=== PATIENT | female | born 1935 | race Caucasian/White ===

== ENCOUNTER → 2018-12-26 | Outpatient (REF) | payer MEDICARE ==
[2018-12-26 13:15] LABS: BASO # 0.1 10^3/uL (0.0-0.2); BASO % 0.6 % (0.0-1.0); EOS # 0.4 10^3/uL (0.0-0.50); EOS % 4.8 % (0.0-3.0); HEMATOCRIT 39.6 % (36.0-47.0); HEMOGLOBIN 12.5 g/dl (12.0-15.5); LYMPH % 35.6 % (24.0-44.0); MEAN CORPUSCULAR HEMOGLOBIN 30.3 pg (27.0-33.0); MEAN CORPUSCULAR HGB CONC 31.6 g/dl (32.0-36.5); MEAN CORPUSCULAR VOLUME 95.9 fl (80.0-96.0); MONO # 0.9 10^3/uL (0.0-0.8); MONO % 10.5 % (0.0-5.0); NEUTROPHILS % 48.1 % (36.0-66.0); PLATELET COUNT, AUTOMATED 228 10^3/uL (150-450); RED BLOOD COUNT 4.13 10^6/uL (4.00-5.40); WHITE BLOOD COUNT 8.3 10^3/uL (4.0-10.0)
[2018-12-26 13:49] LABS: HEMOGLOBIN A1c 5.5 %
[2018-12-26 13:53] LABS: ALBUMIN 3.7 GM/DL (3.2-5.2); ALT/SGPT 20 U/L (12-78); BILIRUBIN,TOTAL 0.5 MG/DL (0.2-1.0); BLOOD UREA NITROGEN 14 MG/DL (7-18); CARBON DIOXIDE LEVEL 28 MEQ/L (21-32); CHLORIDE LEVEL 107 MEQ/L (98-107); CHOLESTEROL LEVEL 200 MG/DL (<200); CHOLESTEROL RISK RATIO 5.128 (<5); CREATININE FOR GFR 0.63 MG/DL (0.55-1.30); GLOMERULAR FILTRATION RATE > 60.0 (>32); GLUCOSE, FASTING 86 MG/DL (70-100); HDL CHOLESTEROL 39 MG/DL (>40); LDL CHOLESTEROL 134 MG/DL (<100); NON-HDL-C 161 MG/DL; POTASSIUM SERUM 4.8 MEQ/L (3.5-5.1); SODIUM LEVEL 139 MEQ/L (136-145); TOTAL PROTEIN 7.4 GM/DL (6.4-8.2); TRIGLYCERIDES LEVEL 133 MG/DL (<150)
[2018-12-26 13:54] LABS: FOLATE 7.3 NG/ML; TOTAL 25(OH) VITAMIN D 36.7 NG/ML (30.0-100.0); VITAMIN B12 LEVEL 354 PG/ML
== END ==
LOC: M SFHCADAM 10:51
PROVIDERS: ATTEND Physician Assistant Medical
DX: I10 Essential (primary) hypertension (principal); E66.01 Morbid (severe) obesity due to excess calories; E55.9 Vitamin D deficiency, unspecified; E53.8 Deficiency of other specified B group vitamins

== ENCOUNTER → 2019-04-10 | Outpatient (REF) | payer MEDICARE, MEDICAID ==
[~2019-04-10] MED LIST: ALDA25TA2 PO; B-12100021 PO; FURO40TA2 PO; GNP250TA9 PO; HYDR12.55 PO; LOSA50TA88 PO; ONDA-83 PO; OXYC-517 PO; OXYCO5TA PO; POTA10CA32 PO; VITA500075 PO
[2019-04-10 12:22] LABS: BASO # 0.1 10^3/uL (0.0-0.2); BASO % 0.6 % (0.0-1.0); EOS # 0.1 10^3/uL (0.0-0.50); EOS % 1.7 % (0.0-3.0); HEMATOCRIT 38.8 % (36.0-47.0); HEMOGLOBIN 12.5 g/dl (12.0-15.5); LYMPH # 2.1 10^3/uL (1.5-4.5); LYMPH % 25.6 % (24.0-44.0); MEAN CORPUSCULAR HEMOGLOBIN 29.6 pg (27.0-33.0); MEAN CORPUSCULAR HGB CONC 32.2 g/dl (32.0-36.5); MEAN CORPUSCULAR VOLUME 91.7 fl (80.0-96.0); MONO % 11.7 % (0.0-5.0); PLATELET COUNT, AUTOMATED 346 10^3/uL (150-450); RED BLOOD COUNT 4.23 10^6/uL (4.00-5.40); WHITE BLOOD COUNT 8.2 10^3/uL (4.0-10.0)
[2019-04-10 12:54] LABS: ALBUMIN 2.8 GM/DL (3.2-5.2); ALT/SGPT 11 U/L (12-78); BILIRUBIN,TOTAL 0.5 MG/DL (0.2-1.0); BLOOD UREA NITROGEN 10 MG/DL (7-18); CALCIUM LEVEL 8.7 MG/DL (8.8-10.2); CARBON DIOXIDE LEVEL 28 MEQ/L (21-32); CHLORIDE LEVEL 101 MEQ/L (98-107); CREATININE FOR GFR 0.84 MG/DL (0.55-1.30); GLOMERULAR FILTRATION RATE > 60.0 (>32); GLUCOSE, FASTING 96 MG/DL (70-100); LIPASE 160 U/L (73-393); MAGNESIUM LEVEL 2.7 MG/DL (1.8-2.4); NT-PRO BNP 152 PG/ML (<450); POTASSIUM SERUM 4.2 MEQ/L (3.5-5.1); SODIUM LEVEL 136 MEQ/L (136-145); TOTAL PROTEIN 6.9 GM/DL (6.4-8.2)
== END ==
LOC: M SFHCPLAZ 10:54
PROVIDERS: ATTEND Nurse Practitioner Family
DX: R60.9 Edema, unspecified (principal); R10.11 Right upper quadrant pain

== ENCOUNTER → 2019-04-13 | Outpatient (CLI) | payer MEDICARE, MEDICAID ==
[~2019-04-13] MED LIST changes: -ALDA25TA2 PO; -B-12100021 PO; -FURO40TA2 PO; -GNP250TA9 PO; -ONDA-83 PO; -OXYC-517 PO; -OXYCO5TA PO; -POTA10CA32 PO; -VITA500075 PO
--- NOTE | 2019-04-13 08:55 | REP ---
Acute abdominal series four views including PA chest, upright abdomen and two abdomen supine views: PA chest: Comparison is 06/17/2007. There is a large left pleural effusion. The right lung is clear. Cardiac size is upper normal. The mora, mediastinum, skeletal structures are unremarkable except for bilateral shoulder arthroplasties. There is no free subdiaphragmatic air. Impression: Large left pleural effusion. No free subdiaphragmatic air. Bilateral shoulder arthroplasties. Abdomen, supine upright views: There are no comparisons. The bowel gas pattern is normal. There are no calcifications. There is lumbar scoliosis convex left and lumbar spine and degenerative disc disease. The skeletal structures and soft tissues otherwise are unremarkable. Impression: Normal bowel gas pattern. Electronically Signed by Doc Funk MD 04/13/2019 08:47 A
--- NOTE | 2019-04-13 09:58 | REP ---
RIGHT UPPER QUADRANT ULTRASOUND: Real-time sonographic evaluation of the right upper quadrant was performed. The gallbladder has been previously surgically removed. Common bile duct is dilated up to 15 mm. This is slightly above normal for a patient of this age status-post cholecystectomy. Liver demonstrates slightly lobulated margins. There appears to be a granuloma a the right dome. A 7 mm cystic area is seen laterally in the right lobe. Medially along the right lobe of the liver and adjacent mesentery is a cystic area of 1 cm. No gross pancreatic mass is seen. Right kidney demonstrates no hydronephrosis with normal size 11.1 cm in length. There is moderate diffuse ascites present. IMPRESSION:Status-post cholecystectomy. Mild dilatation of the common bile duct at 15 mm. Lobulated margins of the right lobe of the liver with possible cirrhosis. 7 mm cyst lateral right lobe with exophytic or mesenteric cyst medial right lobe 1 cm in diameter. Moderate ascites. Electronically Signed by Doc Amato MD 04/17/2019 05:21 P
== END ==
LOC: M RAD 07:41
PROVIDERS: ATTEND Nurse Practitioner Family
DX: K76.89 Other specified diseases of liver (principal); R18.8 Other ascites; J90 Pleural effusion, not elsewhere classified; R10.11 Right upper quadrant pain; Z90.49 Acquired absence of other specified parts of digestive tract

== ENCOUNTER 2019-04-14 05:09 | Inpatient (IN) | payer MEDICARE, MEDICAID ==
[~2019-04-14] VITALS: Ht 157.5 cm; Wt 93.9 kg
[2019-04-14] VITALS (7 sets, daily range): BP systolic 120–156; BP diastolic 58–65
[2019-04-14] MEDS ORDERED: MORPHINE 2 MG/ML 1ML SYRINGE (J2270) IV ONE (05:45)
[2019-04-14] MEDS ORDERED: ONDANSETRON 4MG/2ML VIAL (J2405) As Ordered ONE (06:13)
[2019-04-14] MEDS ORDERED: ONDANSETRON 4MG/2ML VIAL (J2405) IV ONE (06:15)
[2019-04-14 06:42] LABS: HEMOGLOBIN 12.3 g/dl (12.0-15.5); MEAN CORPUSCULAR HEMOGLOBIN 30.2 pg (27.0-33.0); MEAN CORPUSCULAR HGB CONC 32.4 g/dl (32.0-36.5); MEAN CORPUSCULAR VOLUME 93.4 fl (80.0-96.0); PLATELET COUNT, AUTOMATED 286 10^3/uL (150-450); RED BLOOD COUNT 4.07 10^6/uL (4.00-5.40); WHITE BLOOD COUNT 7.5 10^3/uL (4.0-10.0)
[2019-04-14 06:53] LABS: INR 1.16; PROTHROMBIN TIME 14.5 SECONDS (11.8-14.0)
[2019-04-14] MEDS ORDERED: ISOVUE-370 76% 100ML VIAL (Q9967) As Ordered ONE (06:53)
[2019-04-14 06:54] LABS: PARTIAL THROMBOPLASTIN TIME 31.1 SECONDS (25.0-38.4)
--- NOTE | 2019-04-14 06:56 | REPVR ---
EXAM: CT Head Without Contrast EXAM DATE/TIME: 04/14/2019 5:40 AM CLINICAL HISTORY: 84 years old, female; Injury or trauma; Fall; Initial encounter; Concussion / head injury TECHNIQUE: Imaging protocol: Computed tomography images of the head without contrast. Radiation optimization: All CT scans at this facility use at least one of these dose optimization techniques: automated exposure control; mA and/or kV adjustment per patient size (includes targeted exams where dose is matched to clinical indication); or iterative reconstruction. COMPARISON: No relevant prior studies available. FINDINGS: Brain: No CT evidence of acute cortical infarct. Hypodensity within the white matter most suggestive of chronic small vessel ischemic/gliotic change. No mass effect. No edema. There is no evidence of parenchymal hemorrhage. No extra-axial collections. No subarachnoid blood. Ventricles: The ventricular system is midline and appropriate in size for the degree of sulcal dilatation. No hydrocephalus. Bones/joints: Unremarkable. No acute fracture. Sinuses: The demonstrated paranasal sinuses are free of air-fluid level or suspicious mass. Mastoid air cells: Mastoids are free of acute inflammatory change. Orbits: The globes are symmetric. No retrobulbar hematoma. No post septal swelling. Soft tissues: Soft tissue swelling/superficial hematoma centered over the left face/left infraorbital region. Vasculature: There are atherosclerotic changes within the anterior and posterior circulations. IMPRESSION: 1. No evidence of an acute intracranial injury. No intracranial hemorrhage. No evidence of acute cortical infarct. No mass effect. No edema. Followup as clinically warranted. 2. Soft tissue swelling/superficial hematoma centered over the left face/left infraorbital region. No acute fracture. The globes are symmetric. No retrobulbar hematoma. No post septal swelling. 3. Nonemergent/chronic findings as described in the body of report. Electronically signed by: David Cowart On 04/14/2019 06:56:47 AM
--- NOTE | 2019-04-14 07:08 | REPVR ---
EXAM: CT Cervical Spine Without Contrast EXAM DATE/TIME: 04/14/2019 5:40 AM CLINICAL HISTORY: 84 years old, female; Injury or trauma; Fall; Initial encounter; Concussion /head injury TECHNIQUE: Imaging protocol: Computed tomography images of the cervical spine without contrast. Coronal and sagittal reformatted images were created and reviewed. Radiation optimization: All CT scans at this facility use at least one of these dose optimization techniques: automated exposure control; mA and/or kV adjustment per patient size (includes targeted exams where dose is matched to clinical indication); or iterative reconstruction. COMPARISON: No relevant prior studies available. FINDINGS: Vertebrae: The patient's head is tilted toward the left more superiorly. Alignment is essentially anatomic. The vertebral body heights are maintained. No compression fracture. The facet joints are aligned. Facet degenerative changes. The posterior elements are intact. The occipital condyles show no evidence of fracture and demonstrate a normal relationship with the C1 lateral masses. No evidence of dens fracture. There is no evidence of acute cervical spine fracture. Foramen transversarium are intact. Discs/Spinal canal/Neural foramina: No blood within the central canal. Chronic multilevel degenerative/non-emergent changes with multilevel bilateral neural foraminal narrowings. No acute post-traumatic central canal stenosis. If the patient has any signs/symptoms related to the cord or if otherwise clinically warranted, correlation with MRI could be considered. Prevertebral Space: No prevertebral soft tissue swelling. Soft tissues: Unremarkable. Thyroid: 3 cm in transverse diameter heterogeneous right thyroid lobe nodule with peripheral calcifications. Correlation with thyroid ultrasound recommended. Lungs: No acute findings in the demonstrated portions of the lung apices. Vasculature: Atherosclerotic vascular changes. IMPRESSION: 1. No evidence of acute cervical spine fracture. No prevertebral soft tissue swelling. No blood within the central canal. Chronic multilevel degenerative/non-emergent changes. No acute post-traumatic central canal stenosis. If the patient has any signs/symptoms related to the cord or if otherwise clinically warranted, correlation with MRI could be considered. 2. 3 cm in transverse diameter heterogeneous right thyroid lobe nodule with peripheral calcifications. Correlation with thyroid ultrasound recommended. COMMENT: In patients aged 35 years and older with an incidental thyroid nodule equal to or greater than 1.[address], MRI or extrathyroidal US, further evaluation with dedicated thyroid US is recommended for patients with normal life expectancy and without comorbidities. For smaller nodules without suspicious features, no further evaluation or follow up is recommended. Electronically signed by: David Cowart On 04/14/2019 07:08:11 AM
[2019-04-14 07:12] LABS: ALBUMIN 2.6 GM/DL (3.2-5.2); ALT/SGPT 9 U/L (12-78); BILIRUBIN,DIRECT 0.4 MG/DL (0.0-0.2); BILIRUBIN,TOTAL 0.7 MG/DL (0.2-1.0); BLOOD UREA NITROGEN 9 MG/DL (7-18); CALCIUM LEVEL 8.3 MG/DL (8.8-10.2); CARBON DIOXIDE LEVEL 25 MEQ/L (21-32); CHLORIDE LEVEL 106 MEQ/L (98-107); CREATININE FOR GFR 0.76 MG/DL (0.55-1.30); GLOMERULAR FILTRATION RATE > 60.0 (>32); GLUCOSE, FASTING 101 MG/DL (70-100); LIPASE 94 U/L (73-393); POTASSIUM SERUM 3.9 MEQ/L (3.5-5.1); SODIUM LEVEL 139 MEQ/L (136-145); TOTAL PROTEIN 6.7 GM/DL (6.4-8.2)
--- NOTE | 2019-04-14 07:14 | REPVR ---
EXAM: CT Maxillofacial Without Contrast EXAM DATE/TIME: 04/14/2019 5:40 AM CLINICAL HISTORY: 84 years old, female; Eye pain and face pain; Left; Additional info: Fall TECHNIQUE: Imaging protocol: Computed tomography images of the face without contrast. Coronal and sagittal reformatted images were created and reviewed. Radiation optimization: All CT scans at this facility use at least one of these dose optimization techniques: automated exposure control; mA and/or kV adjustment per patient size (includes targeted exams where dose is matched to clinical indication); or iterative reconstruction. COMPARISON: No relevant prior studies available. FINDINGS: Orbits: The globes are symmetric. No retrobulbar hematoma. No post septal swelling. Mastoid air cells: Mastoids are free of acute inflammatory change. Sinuses: The demonstrated paranasal sinuses are free of air-fluid level or suspicious mass. Bones/joints: No mandibular fracture. No maxillary fracture. The zygomatic arches are intact. No acute displaced nasal fracture. Please correlate clinically. No acute orbital fracture. Soft tissues: Soft tissue swelling/superficial hematoma centered over the left cheek/left infraorbital region. Vasculature: Atherosclerotic vascular changes. IMPRESSION: Soft tissue swelling/superficial hematoma centered over the left cheek/left infraorbital region. No facial fracture. The paranasal sinuses are clear. Globes are symmetric. No retrobulbar hematoma. No radiopaque foreign body. Electronically signed by: David Cowart On 04/14/2019 07:14:26 AM
--- NOTE | 2019-04-14 07:30 | REPVR ---
EXAM: CT Chest Without Contrast EXAM DATE/TIME: 04/14/2019 5:40 AM CLINICAL HISTORY: 84 years old, female; Injury or trauma; Fall; Initial encounter; Concussion /head injury TECHNIQUE: Imaging protocol: Axial computed tomography images of the chest without intravenous contrast. Coronal and sagittal reformatted images were created and reviewed. 3D rendering: MIP reconstructed images were created and reviewed. Radiation optimization: All CT scans at this facility use at least one of these dose optimization techniques: automated exposure control; mA and/or kV adjustment per patient size (includes targeted exams where dose is matched to clinical indication); or iterative reconstruction. COMPARISON: CR Abdomen,Flat Upright,PA CHEST 04/13/2019 8:33 AM FINDINGS: Thyroid: 3 cm heterogeneous nodule right thyroid lobe with peripheral calcifications. Thyroid ultrasound could further evaluate. Lungs: Compressive atelectatic changes/consolidation in the left lung base. Pleural space: No pneumothorax. Moderate left-sided pleural effusion. Heart: Coronary artery calcifications. No cardiomegaly. No pericardial effusion. Aorta: The vasculature demonstrates diffuse moderate atherosclerotic calcification. Lymph nodes: No enlarged lymph nodes. Bones/joints: Bilateral reverse total shoulder arthroplasties. Soft tissues: Unremarkable. Intraperitoneal space/upper abdomen: Ascites in the upper abdomen bilaterally. On limited images the liver has a nodular appearance suggesting cirrhosis. Please correlate with known history. IMPRESSION: Ascites in the upper abdomen bilaterally. On limited images the liver has a nodular appearance suggesting cirrhosis. Please correlate with known history. Moderate left-sided pleural effusion.Compressive atelectatic changes/consolidation in the left lung base. The vasculature demonstrates diffuse moderate atherosclerotic calcification. Coronary artery calcifications. 3 cm heterogeneous nodule right thyroid lobe with peripheral calcifications. Thyroid ultrasound could further evaluate. Bilateral reverse total shoulder arthroplasties. COMMENT: In patients aged 35 years and older with an incidental thyroid nodule equal to or greater than 1.[address], MRI or extrathyroidal US, further evaluation with dedicated thyroid US is recommended for patients with normal life expectancy and without comorbidities. For smaller nodules without suspicious features, no further evaluation or follow up is recommended. Electronically signed by: David Cowart On 04/14/2019 07:30:45 AM
[2019-04-14] MEDS: MORPHINE 2 MG/ML 1ML SYRINGE (J2270) IV PRN ×2 (08:25→10:11)
--- NOTE | 2019-04-14 08:34 | REP ---
CT of the chest with IV contrast: Comparison is a CT of the chest without IV contrast performed earlier this same date. The ascending thoracic aorta, aortic arch and descending thoracic aorta are unremarkable. There is no evidence of aortic dissection. There is no mediastinal hematoma. There is a large left pleural effusion with compression atelectasis of the left lower lobe. This is unchanged. The right lung is clear. There are bilateral shoulder arthroplasties. No clavicle or scapular fracture is identified. No rib fracture is identified. No sternal fracture. No vertebral body fracture. Cardiac size is normal. There is no pericardial effusion. In the upper abdomen there is ascites surrounding the liver and spleen. The hepatic margin is nodular suggestive of cirrhosis. This is unchanged. There are thyroid gland nodules as discussed on the prior report. Thyroid ultrasound follow-up might be considered. Impression: Large left pleural effusion with compression atelectasis of the left lower lobe. No thoracic aortic aneurysm or dissection. No mediastinal hematoma. No fractures are identified. Thyroid nodules. Upper abdominal ascites. Hepatic nodular surface compatible with cirrhosis. Coronary artery calcified atheroma. Electronically Signed by Doc Funk MD 04/14/2019 08:25 A
--- NOTE | 2019-04-14 08:50 | REP ---
CT of the abdomen pelvis with IV contrast, without bowel contrast: The study is performed contiguous with the chest CT. There are no comparison studies. There is a large volume of ascites throughout the abdomen surrounding the liver and spleen extending inferiorly in the colic gutters and into the pelvis. The hepatic surface has a nodular appearance compatible with cirrhosis. There are no hepatic masses. The the patient has a cholecystectomy. The common biliary duct measures 11 mm in diameter. This is upper normal in a postcholecystectomy patient. The pancreas is unremarkable. There is an 18 ml hypodensity in the spleen, possibly a splenic hematoma. The adrenals are unremarkable. The renal cortices appear thinned diffusely. There is a left renal upper pole 3.1 cm Bosniak type 1 simple cyst. No renal masses are identified. The abdominal aorta is unremarkable except for calcified atheroma. There is no abdominal aortic dissection or periaortic hematoma or aneurysm. There is no bowel distension or obstruction. Pelvis: The the patient has an appendectomy. The uterus has a heterogeneous myometrium. The uterus is retroverted. There is a right adnexal 3.4 cm cysts. The bladder is unremarkable. No lumbar, pelvic or hip fractures are identified. There is degenerative disc disease throughout the lumbar spine. Impression: Large volume of ascites. Nodular hepatic surface compatible with cirrhosis. No hepatic masses are identified. Hypodensity in the spleen, possibly a splenic hematoma. Left renal cyst. Cholecystectomy and appendectomy. Heterogeneous myometrium. The uterus is retroverted. Right adnexal cyst. No abdominal aortic aneurysm or dissection. No fractures are identified. Electronically Signed by Doc Funk MD 04/14/2019 08:42 A
--- NOTE | 2019-04-14 08:52 | REP ---
Left knee four views: There is no fracture or dislocation. There is no hemarthrosis. 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 Impression: No fracture or hemarthrosis. Chondrocalcinosis and tricompartment osteoarthritis. Electronically Signed by Doc Funk MD 04/14/2019 08:44 A
[2019-04-14] MEDS ORDERED: LOSA50TA88 PO ×2 (09:52)
[2019-04-14] MEDS ORDERED: HYDR12.55 PO (09:52)
[2019-04-14 10:19] LABS: CK-MB VALUE MASS < 1.0 NG/ML (<3.6); CPK CREATINE PHOSPHOKINASE 33 U/L (26-192); FREE THYROXINE INDEX 3.4 % (1.3-4.8); LDH LACTATE DEHYDROGENASE 277 U/L (84-246); MB/CK RELATIVE INDEX 3.03 (< OR =4); T UPTAKE 34 % (30-39); TROPONIN I 0.02 NG/ML (< 0.10)
[2019-04-14] MEDS ORDERED: PILL CUTTER 1 EACH XX PRN (10:30)
[2019-04-14] MEDS ORDERED: FUROSEMIDE 100 MG/10 ML VIAL (J1940) IV ONE (11:00)
[2019-04-14] MEDS ORDERED: SPIRONOLACTONE 50 MG TAB PO ONE (11:00)
[2019-04-14] MEDS ORDERED: metOLazone 2.5 MG TAB PO ONE (11:00)
--- NOTE | 2019-04-14 13:37 | REP ---
Thyroid ultrasound: The thyroid right lobe is normal size measuring 3.9 x 2.9 x 2.5 cm. The thyroid left lobe is normal size measuring 3.2 x 1.2 x 1.0 cm. The isthmus is mildly thickened measuring up to 3.8 mm. Right lobe: There are at least four nodules: Upper pole, solid, 0.6 cm. Mid pole, complex, 2.3 cm. Mid pole, solid, 1.6 cm. The lower pole, calcified, 1.0 cm. Consideration might be given to ultrasound guided needle biopsy of the larger nodules. Left lobe: There is a single upper pole cyst measuring 0.2 cm. Other than the thyroid nodules/cysts. The thyroid parenchyma is homogeneous. Electronically Signed by Doc Funk MD 04/14/2019 01:29 P
--- NOTE | 2019-04-14 13:51 | HPE ---
DATE OF ADMISSION: 04/14/2019 CHIEF COMPLAINT: Fall. HISTORY OF PRESENTING ILLNESS: This is an 84-year-old female who lives alone in a senior apartment with a [employer] bracelet and family close by, prior history of hypertension, which resolved without medications when she lost about 30 pounds, chronic back pain, osteoarthritis, prior history of bilateral shoulder surgery, obesity, body mass index (BMI) of 38.5, probable obstructive sleep apnea. Presents to the emergency room with a fall at home. The patient lost her footing at around 4:00 to 4:30 a.m. She got up around 3:30 to 4:00 a.m. to go to the bathroom, which had a tile file, she usually wears a brace on her left foot with a leather bottom and laces, which she kept intact. As she turned to sit down, she fell forward into the doorway landing on her left side, sustaining some bruises on the left face and eye as she fell on the sill. Both knees hurt the floor. She then pushed her [employer] necklace and help came. She has had increasing abdominal fullness, lower extremity edema for the past 1 month; despite losing 30 pounds when she first moved here, she has now gained them all back. She complains of early satiety, only able to eat about half of her soup and then feeling sick to her stomach. She complains of generalized fatigue and weakness and has been sleeping much more recently. She has noted increasing abdominal distention, weight gain. She denies any shortness of breath, chest pain, pressure, tightness, lightheadedness or dizziness. Denies any palpitations, fever, chills prior to the fall. Denies any nausea, vomiting, diarrhea, or constipation. She denies ever drinking much alcohol, drug use, or any family history of liver disease. In the ER, she was found to have a large left pleural effusion, a large amount of ascites on CT abdomen and pelvis. There is no fracture noted on the cervical spine, but a notable thyroid nodule with thyroid function test pending. 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 PAST MEDICAL HISTORY: Hypertension. Osteoarthritis. Chronic back pain. Morbid obesity, BMI of 38.5. PAST SURGICAL HISTORY: Bilateral shoulder arthroplasty. Cholecystectomy. Appendectomy. SOCIAL HISTORY: The patient lives in senior housing in [facility]. She lives alone with Life Alert necklace. Her apartment has pull strings and lives on the ground floor. She has a Pomeranian at home. Family is close by. Healthcare proxy is Nida; phone number is [phone]. She is DO NOT RESUSCITATE/DO NOT INTUBATE. Patient denies any history of any alcohol use. No recreational drug use. She lived with her , until he , [place] a farm and raised eight children. After the children grew up, she worked at [employer] for about 7 years. FAMILY HISTORY: Noncontributory due to age. ALLERGIES: SULFA, ACETAMINOPHEN, ASPIRIN and IBUPROFEN. REVIEW OF SYSTEMS: Twelve-point system negative aside from positive findings on history of the present illness. PHYSICAL EXAMINATION: Temperature 98.3, pulse 80, respiratory rate 18, blood pressure is 132/59, 92% to 93% on room air. Body max index is 38.5. Generally, the patient has a significant ecchymotic area in the left periorbital area, left forehead, and cheek. She is awake, alert, oriented times three, providing much of the history. There is no respiratory distress or use of accessory respiratory muscles. There is no conversational dyspnea. Pupils are equally round, reactive to light and accommodation. Extraocular muscles are intact. The patient has no horizontal or vertical nystagmus. Anicteric sclerae. No jaundice. Face is symmetric. Tongue is midline. Neck is supple. Full range of motion. No cervical lymphadenopathy, thyromegaly. Moist mucous membranes. Mucosa is pink. No thyromegaly noted. No carotid bruits. Lungs are diminished on the left, right is clear. No wheezing. Heart: S1, S2, sinus rhythm. No murmurs, rubs or gallops. Nondisplaced point of maximum impulse. Abdomen: Obese, soft, nontender, nondistended. Positive bowel sounds times four quadrants. Positive fluid wave. No caput medusae, spider angiomas or palmar erythema. Extremities: 3+ pitting edema to the sacrum. Significant left knee ecchymosis. Range of motion is limited secondary to severe pain after her fall. EKG is pending. LABORATORY DATA: White count 7.5, hemoglobin 12, hematocrit 38, platelet 286. Sodium 139, potassium 3.9, chloride 106, bicarbonate 25, BUN 9, creatinine 0.76, glucose of 101, calcium of 8.3, total bilirubin 0.7, direct bilirubin 0.4, AST 21, ALT 9, alkaline phosphatase 47, LDH 277, total CK 33, MB less than 1, troponin 0.02, total protein 6.7, albumin 2.6, lipase 94, procalcitonin pending. TSH 2.8, free T4 of 3.4, T3 uptake of 34. IMAGING STUDIES: 04/14/2019, 5:[address] - soft tissue swelling and superficial hematoma over the left cheek and left infraorbital region. No facial fracture. Paranasal sinuses are clear. Globes are symmetric. Knee x-ray shows no fracture or hemarthrosis of the left knee. Chondrocalcinosis and tricompartment osteoarthritis. CT of the head shows no evidence of acute intracranial injury. No intracranial hemorrhage. No evidence of acute cortical infarct. No mass effect, edema. Soft tissue swelling and superficial hematoma centered over the left face, left infraorbital region. No acute fracture. Globes ae symmetric. No retrobulbar hematoma. No postseptal swelling. Nonemergent chronic findings as described in the body of the report. Chest CT: Thyroid 3 cm heterogenous nodule right thyroid lobe with peripheral calcifications. Thyroid ultrasound could further evaluate. Lungs have compressive atelectasis and consolidation in the left lung base. No pneumothorax. Moderate left-sided pleural effusion. Heart: No cardiomegaly or pericardial effusion. Moderate atherosclerotic disease of the aorta. Bilateral total shoulder arthroplasties. Ascites in the upper abdomen bilaterally. Liver has a nodular appearance suggesting liver cirrhosis. Cervical spine CT: No evidence of acute cervical spine fracture. No prevertebral soft tissue swelling. No blood within the central canal. Chronic multilevel degenerative nonemergent changes. No acute posttraumatic central canal stenosis. 3 cm transverse diameter heterogenous right thyroid lobe nodule with peripheral calcifications. Correlations with thyroid ultrasound recommended. CT angio of the chest: Rule out aortic injury. No thoracic aortic aneurysm or dissection. No mediastinal hematoma. Left-sided pleural effusion with compressive atelectasis of the left lower lobe. CT of the abdomen and pelvis shows large volume of ascites. Nodular hepatic surface compatible with cirrhosis. No hepatic masses are identified. Hypodensity in the spleen, possibly a splenic hematoma. Left renal cyst. Cholecystectomy and appendectomy. Heterogenous myometrium. Uterus is retroverted. Right adnexal cyst. No abdominal aortic aneurysm or dissection. No fractures are identified. ASSESSMENT AND PLAN: An 84-year-old female status post fall at home, history of hypertension, morbid obesity, now found to have nodular liver cirrhosis with portal hypertension, ascites, and decompensated liver disease and large left pleural effusion. Current active issues: 1. Liver cirrhosis, decompensated with a large amount of ascites. The patient currently has no nausea, vomiting, worsening shortness of breath, fever, chills, or any abdominal pain. Paracentesis has been set up for radiology to be done on Tuesday. Will send for peritoneal fluid, monitor for fevers. No empiric antibiotics with rifaximin at this time. If the patient gets confused, will check an ammonia level. Recheck complete metabolic panel in the morning. Patient will be tried on Lasix, spironolactone, fluid restriction of two liters daily, propranolol if blood pressure permits. If patient's blood pressure decreases, may need to use midodrine along with spironolactone to prevent depletion of potassium until patient has improved. 2. Left-sided pleural effusion secondary to cor pulmonale due to nodular liver cirrhosis and decompensated liver failure. At this time, the patient will be given a trial of diuresis, fluid restriction, strict intake and output, daily weights, monitor patient's creatinine. If needed, due to low blood pressure, patient may be given midodrine along with albumin infusions to increase renal perfusion to improve diuresis. If the patient has recurrent ascites and pleural effusions, may benefit from referral to interventional radiology for a transjugular intrahepatic portosystemic shunt (TIPS) procedure. 3. Probable nonalcoholic steatohepatitis. Obtain lipid panel. Continue with treatment for decompensated liver disease with diuresis, treatment for portal hypertension with propranolol and strict intake and output and fluid restriction. 4. Thyroid nodule. Will obtain a thyroid ultrasound. Thyroid function tests are negative. 5. Recent fall. Appears to be mechanical. Will obtain physical therapy (PT), occupational therapy (OT). Warm compresses to the left knee ecchymosis and elevation of the affected extremity. The patient does not have any limitations of extraocular movements of the left eye, despite significant ecchymosis, she has had no visual changes. Will continue to monitor for now. 6. Deep vein thrombosis (DVT) prophylaxis with compression stockings. In light of multiple ecchymotic areas, will not place on any heparin or Lovenox. 7. Morbid obesity, complicating care. Body mass index of 38.5. 8. Probable obstructive sleep apnea. Obstructive sleep apnea (SUZY) protocol. 9. History of hypertension. Currently controlled. Will hold off on any oral medications for now as we are proceeding with diuresis. Diet will be Dietary Approaches to Stop Hypertension (DASH) diet. Patient has been signed out to Dr. Fermín Millard at [facility].
--- NOTE | 2019-04-14 16:32 | REP ---
Bilateral lower extremity deep vein duplex ultrasound: The deep veins demonstrate normal compression, normal Doppler color flow and normal Doppler waveforms with respiration and augmentation from the popliteal veins to the common femoral veins bilaterally. Impression: There is no deep vein thrombus in the right or left lower extremities. Electronically Signed by Doc Funk MD 04/14/2019 04:24 P
[2019-04-14] MEDS: FUROSEMIDE 20 MG/2 ML VIAL (J1940) IV SCH (18:13)
[2019-04-14] MEDS: SPIRONOLACTONE 25 MG TAB PO SCH (18:13)
[2019-04-14 19:33] LABS: BLOOD UREA NITROGEN 10 MG/DL (7-18); CALCIUM LEVEL 8.5 MG/DL (8.8-10.2); CARBON DIOXIDE LEVEL 28 MEQ/L (21-32); CHLORIDE LEVEL 103 MEQ/L (98-107); CREATININE FOR GFR 0.89 MG/DL (0.55-1.30); GLOMERULAR FILTRATION RATE > 60.0 (>32); GLUCOSE, FASTING 119 MG/DL (70-100); MAGNESIUM LEVEL 2.2 MG/DL (1.8-2.4); POTASSIUM SERUM 3.7 MEQ/L (3.5-5.1); SODIUM LEVEL 137 MEQ/L (136-145)
[2019-04-14] MEDS ORDERED: ONDANSETRON 4MG/2ML VIAL (J2405) IV PRN (22:15)
[2019-04-14] MEDS ORDERED: methylPREDNISolone INJ 40 MG/1 ML VIAL (J2920) IV ONE (22:15)
[2019-04-14] MEDS: MORPHINE 4 MG/ML 1ML VIAL/SYRINGE (J2270) IV PRN (22:25)
[2019-04-15] VITALS (10 sets, daily range): BP systolic 119–170; BP diastolic 53–70
[2019-04-15] MEDS: FUROSEMIDE 20 MG/2 ML VIAL (J1940) IV SCH ×4 (00:31→18:52)
[2019-04-15 03:51] LABS: HEMATOCRIT 36.9 % (36.0-47.0); HEMOGLOBIN 11.8 g/dl (12.0-15.5); MEAN CORPUSCULAR HEMOGLOBIN 29.9 pg (27.0-33.0); MEAN CORPUSCULAR VOLUME 93.4 fl (80.0-96.0); PLATELET COUNT, AUTOMATED 280 10^3/uL (150-450); RED BLOOD COUNT 3.95 10^6/uL (4.00-5.40); WHITE BLOOD COUNT 6.6 10^3/uL (4.0-10.0)
[2019-04-15 04:15] LABS: ALBUMIN 2.5 GM/DL (3.2-5.2); ALT/SGPT 9 U/L (12-78); BILIRUBIN,TOTAL 0.5 MG/DL (0.2-1.0); BLOOD UREA NITROGEN 10 MG/DL (7-18); CALCIUM LEVEL 8.3 MG/DL (8.8-10.2); CARBON DIOXIDE LEVEL 28 MEQ/L (21-32); CHLORIDE LEVEL 101 MEQ/L (98-107); CHOLESTEROL LEVEL 170 MG/DL (<200); CHOLESTEROL RISK RATIO 6.296 (<5); CREATININE FOR GFR 0.88 MG/DL (0.55-1.30); GLOMERULAR FILTRATION RATE > 60.0 (>32); GLUCOSE, FASTING 126 MG/DL (70-100); HDL CHOLESTEROL 27 MG/DL (>40); LDL CHOLESTEROL 120 MG/DL (<100); NON-HDL-C 143 MG/DL; POTASSIUM SERUM 3.9 MEQ/L (3.5-5.1); SODIUM LEVEL 136 MEQ/L (136-145); TOTAL PROTEIN 7.1 GM/DL (6.4-8.2); TRIGLYCERIDES LEVEL 113 MG/DL (<150)
[2019-04-15] MEDS: MORPHINE 4 MG/ML 1ML VIAL/SYRINGE (J2270) IV PRN ×2 (07:29→22:30)
[2019-04-15] MEDS: SPIRONOLACTONE 25 MG TAB PO SCH ×2 (08:19→17:00)
[2019-04-15] MEDS ORDERED: SLF 3 ML SYR IV PRN (12:30)
[2019-04-15] MEDS: SLF 3 ML SYR IV SCH ×2 (15:00→22:29)
--- NOTE | 2019-04-15 17:23 | IPNPDOC ---
Subjective Date Seen The patient was seen on 04/15/19. Subjective Chief Complaint/HPI improved GUZMAN since admission Constitutional: Denies: Chills, Fever Eyes: Denies: Pain, Vision change ENT: Denies: Head Aches Skin: Denies: Rash Pulmonary: Denies: Dyspnea, Cough Cardiovascular: Denies: Chest Pain, Palpitations Gastrointestinal: Denies: Nausea, Vomiting Genitourinary: Denies: Dysuria Objective Physical Examination General Exam: Positive: Alert Eye Exam: Positive: PERRLA Neck Exam: Positive: JVD Chest Exam: Positive: Rales, Rhonchi; Negative: Clear to auscultation Abdomen Exam: Positive: Normal bowel sounds Extremity Exam: Positive: Edema Psych Exam: Positive: Mood NL Assessment /Plan Problems (1) Ascites Problem Text: -3L since admission planned diagnostic para/thoracentesis 04/16 (could not be done over weekend) tumor markers for ascites corral 04/15 TTE/BNP (to ro concomitant CHF) 04/14 + fur 20 IV q6H and charlette 25 BID (favor 2 hyperaldo) 04/14 CT AP: Large volume of ascites. Nodular hepatic surface compatible with cirrhosis. No hepatic masses are identified. Hypodensity in the spleen, possibly a splenic hematoma. Left renal cyst. Cholecystectomy and appendectomy. Heterogeneous myometrium. The uterus is retroverted. Right adnexal cyst. No abdominal aortic aneurysm or dissection. No fractures are identified. 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 No thoracic aortic aneurysm or dissection. No mediastinal hematoma. No fractures are identified. Thyroid nodules. Upper abdominal ascites. Hepatic nodular surface compatible with cirrhosis. Coronary artery calcified atheroma. (4) Weight loss Status: Chronic Problem Text: as per pleural effusion (5) Thyroid nodule Problem Text: 04/14 thyroid US: Right lobe: There are at least four nodules: Upper pole, solid, 0.6 cm. Mid pole, complex, 2.3 cm. Mid pole, solid, 1.6 cm. The lower pole, calcified, 1.0 cm. favor FNA 16, 23 mm lesions (6) Physical deconditioning Problem Text: + PT p teses Plan/VTE VTE Prophylaxis Ordered?: No VTE Exclusion Pharmacological: Other VS, I&O, 24H, Fishbone Vital Signs/I&O Vital Signs Date Time Temp Pulse Resp B/P (MAP) Pulse Ox O2 Delivery O2 Flow Rate FiO2 04/15/19 16:00 98.0 78 18 119/53 (75) 94 2.0 04/14/19 10:00 Room Air I&O- Last 24 Hours up to 6 AM 04/15/19 06:00 Intake Total 790 ml Output Total 4175 ml Balance -3385 ml Laboratory Data 24H LABS Laboratory Tests 2 04/14/19 18:57: Anion Gap 6L, Glomerular Filtration Rate > 60.0, Blood Urea Nitrogen 10, Creatinine 0.89, Sodium Level 137, Potassium Level 3.7, Chloride Level 103, Carbon Dioxide Level 28, Calcium Level 8.5L, Magnesium Level 2.2 04/15/19 03:34: Anion Gap 7L, Glomerular Filtration Rate > 60.0, Blood Urea Nitrogen 10, Creatinine 0.88, Sodium Level 136, Potassium Level 3.9, Chloride Level 101, Carbon Dioxide Level 28, Calcium Level 8.3L, Nucleated Red Blood Cells % (auto) 0.0, Aspartate Amino Transf (AST/SGOT) 19, Alanine Aminotransferase (ALT/SGPT) 9L, Alkaline Phosphatase 45, Total Bilirubin 0.5, Triglycerides Level 113, LDL Cholesterol 120H, Total Protein 7.1, Albumin 2.5L, Albumin/Globulin Ratio 0.54L, Total Cholesterol 170, Non-HDL Cholesterol (LDL + VLDL) 143, Total HDL Cholesterol 27L, Cholesterol/HDL Ratio 6.296H CBC/BMP Laboratory Tests 04/14/19 18:57 Calcium Level 8.5 L 04/15/19 03:34 Calcium Level 8.3 L, Red Blood Count 3.95 L, Mean Corpuscular Volume 93.4, Mean Corpuscular Hemoglobin 29.9, Mean Corpuscular Hemoglobin Concent 32.0, Red Cell Distribution Width 14.6 H, Aspartate Amino Transf (AST/SGOT) 19, Alanine Aminotransferase (ALT/SGPT) 9 L, Alkaline Phosphatase 45, Total Bilirubin 0.5, Triglycerides Level 113, LDL Cholesterol 120 H, Total Protein 7.1, Albumin 2.5 L Fermín Millard M.D. Apr 15, 2019 17:23
[2019-04-15 19:01] LABS: NT-PRO BNP 348 PG/ML (<450)
[2019-04-16] VITALS (8 sets, daily range): BP systolic 126–164; BP diastolic 57–70
[2019-04-16] MEDS: FUROSEMIDE 20 MG/2 ML VIAL (J1940) IV SCH ×5 (00:22→23:55)
[2019-04-16 01:19] LABS: TROPONIN I < 0.02 NG/ML (< 0.10)
[2019-04-16] MEDS: MORPHINE 4 MG/ML 1ML VIAL/SYRINGE (J2270) IV PRN ×5 (04:53→21:42)
[2019-04-16 06:03] LABS: BASO % 0.2 % (0.0-1.0); EOS # 0.1 10^3/uL (0.0-0.50); EOS % 0.9 % (0.0-3.0); HEMATOCRIT 36.5 % (36.0-47.0); LYMPH # 1.8 10^3/uL (1.5-4.5); LYMPH % 20.1 % (24.0-44.0); MEAN CORPUSCULAR HEMOGLOBIN 29.9 pg (27.0-33.0); MEAN CORPUSCULAR HGB CONC 32.9 g/dl (32.0-36.5); MONO # 1.1 10^3/uL (0.0-0.8); MONO % 13.1 % (0.0-5.0); NEUTROPHILS # 5.7 10^3/uL (1.8-7.7); NEUTROPHILS % 65.4 % (36.0-66.0); PLATELET COUNT, AUTOMATED 256 10^3/uL (150-450); RED BLOOD COUNT 4.01 10^6/uL (4.00-5.40); WHITE BLOOD COUNT 8.7 10^3/uL (4.0-10.0)
[2019-04-16] MEDS: SLF 3 ML SYR IV SCH ×3 (06:27→20:33)
[2019-04-16 06:33] LABS: ALBUMIN 2.6 GM/DL (3.2-5.2); BILIRUBIN,TOTAL 0.5 MG/DL (0.2-1.0); CALCIUM LEVEL 8.9 MG/DL (8.8-10.2); CREATININE FOR GFR 0.96 MG/DL (0.55-1.30); GLOMERULAR FILTRATION RATE 59.1 (>32); MAGNESIUM LEVEL 2.2 MG/DL (1.8-2.4); POTASSIUM SERUM 3.5 MEQ/L (3.5-5.1)
--- NOTE | 2019-04-16 07:52 | ECHO ---
TWO-DIMENSIONAL ECHOCARDIOGRAM REPORT REFERRING PHYSICIAN: Dr. Bauer DATE: 04/15/2019 INDICATION: Dyspnea. HEIGHT: 157 cm. WEIGHT: 95 kg. DIMENSIONS: IVS 1.2 LV 4.2 LVPW 1.1 LA 2.9 Aorta 3.0 IVC 1.2 Mitral E wave velocity 74 A wave 92 E prime septal 5.1 E prime lateral 8.3 FINDINGS: This study is of rather limited technical quality corresponding to patient's body habitus. The patient is in sinus rhythm. Left ventricle is normal size. There is borderline left ventricular hypertrophy. I assume overall normal LV systolic function even though the visualization was poor and I certainly could miss even substantial wall motion abnormality. The right ventricle appears to be normal size and mildly hypertrophic based on limited views. Both atria appear grossly normal. There are some minimal sclerotic abnormalities of aortic valve. Same applies for mitral valve. Neither valve was particularly well seen. Limited views of tricuspid valve also appear normal. Pulmonic valve was not visualized. There is no pericardial effusion. Inferior vena cava is of normal size. Aortic root is normal. Aortic arch and abdominal aorta were poorly visualized. Doppler interrogation of aortic valve reveals no stenosis or insufficiency. Same applies for mitral valve. There is trace tricuspid insufficiency. Based on fair quality TR jet pulmonary artery pressure is estimated around 30 mmHg which would correspond to borderline pulmonary hypertension. Mitral inflow pattern and tissue Doppler imaging of mitral annulus reveal grade 1 diastolic dysfunction. CONCLUSIONS: 1. Study is of rather limited technical quality with only limited views. 2. Normal LV size with borderline LVH and grossly preserved LV systolic function. Grade 1 diastolic dysfunction. 3. No hemodynamically significant valvular disease. 4. Likely normal central venous pressure and borderline pulmonary hypertension. COMMENT: SBE prophylaxis is not recommended cyanotic.
--- NOTE | 2019-04-16 09:29 | IPNPDOC ---
Subjective Date Seen The patient was seen on 04/16/19. Subjective Chief Complaint/HPI Patient lying comfortably in bed as I entered the room. Her daughter was at her bedside Constitutional: Denies: Chills, Fever Pulmonary: Reports: Other Symptoms (Mild SOB ); Denies: Dyspnea, Cough, Pleuritic Chest Pain Cardiovascular: Denies: Chest Pain, Palpitations, Edema Gastrointestinal: Denies: Nausea, Vomiting, Abdominal Pain Psych: Reports: Mood Normal Objective Physical Examination General Exam: Positive: Alert, No Acute Distress Eye Exam: Positive: PERRLA Neck Exam: Positive: JVD Chest Exam: Negative: Clear to auscultation, Rales, Rhonchi Abdomen Exam: Positive: Normal bowel sounds, Soft; Negative: Tenderness Extremity Exam: Positive: Edema Psych Exam: Positive: Mood NL Assessment /Plan Problems (1) Ascites Status: Acute Response to Treatment: Stable Problem Text: 04/16/19: planned diagnostic para/thoracentesis today -3L since admission planned diagnostic para/thoracentesis 04/16 (could not be done over weekend) tumor markers for ascites corral 04/15 TTE/BNP (to ro concomitant CHF) 04/14 + fur 20 IV q6H and charlette 25 BID (favor 2 hyperaldo) 04/14 CT AP: Large volume of ascites. Nodular hepatic surface compatible with cirrhosis. No hepatic masses are identified. Hypodensity in the spleen, possibly a splenic hematoma. Left renal cyst. Cholecystectomy and appendectomy. Heterogeneous myometrium. The uterus is retroverted. Right adnexal cyst. No abdominal aortic aneurysm or dissection. No fractures are identified. (2) Pleural effusion Status: Acute Problem Text: 04/16/19: planned diagnostic thoracentesis as per pleural effusion 04/14 CT chest: Large left pleural effusion with compression atelectasis of the left lower lobe. No thoracic aortic aneurysm or dissection. No mediastinal hematoma. No fractures are identified. Thyroid nodules. Upper abdominal ascites. Hepatic nodular surface compatible with cirrhosis. Coronary artery calcified atheroma. 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 Mid pole, complex, 2.3 cm. Mid pole, solid, 1.6 cm. The lower pole, calcified, 1.0 cm. favor FNA 16, 23 mm lesions (6) Physical deconditioning Problem Text: + PT p teses Plan/VTE VTE Prophylaxis Ordered?: No VTE Exclusion Pharmacological: Other VS, I&O, 24H, Fishbone Vital Signs/I&O Vital Signs Date Time Temp Pulse Resp B/P (MAP) Pulse Ox O2 Delivery O2 Flow Rate FiO2 04/16/19 08:00 97.5 74 18 128/60 (82) 95 1.0 04/16/19 01:00 Room Air I&O- Last 24 Hours up to 6 AM 04/16/19 06:00 Intake Total 750 ml Output Total 3700 ml Balance -2950 ml Laboratory Data 24H LABS Laboratory Tests 2 04/15/19 17:56: Ammonia 24, CG-Uui-V-Type Natriuretic Peptide 348 04/16/19 00:35: Troponin I < 0.02, Thyroid Stimulating Hormone (TSH) 2.670 04/16/19 05:38: Immature Granulocyte % (Auto) 0.3, White Blood Count 8.7, Red Blood Count 4.01, Hemoglobin 12.0, Hematocrit 36.5, Mean Corpuscular Volume 91.0, Mean Corpuscular Hemoglobin 29.9, Mean Corpuscular Hemoglobin Concent 32.9, Red Cell Distribution Width 14.4, Platelet Count 256, Neutrophils (%) (Auto) 65.4, Lymphocytes (%) (Auto) 20.1L, Monocytes (%) (Auto) 13.1H, Eosinophils (%) (Auto) 0.9, Basophils (%) (Auto) 0.2, Neutrophils # (Auto) 5.7, Lymphocytes # (Auto) 1.8, Monocytes # (Auto) 1.1H, Eosinophils # (Auto) 0.1, Basophils # (Auto) 0.0, Nucleated Red Blood Cells % (auto) 0.0, Anion Gap 4L, Glomerular Filtration Rate 59.1, Blood Urea Nitrogen 18#, Creatinine 0.96, Sodium Level 136, Potassium Level 3.5, Chloride Level 98, Carbon Dioxide Level 34H, Calcium Level 8.9, Aspartate Amino Transf (AST/SGOT) 20, Alanine Aminotransferase (ALT/SGPT) 11L, Alkaline Phosphatase 43L, Total Bilirubin 0.5, Total Protein 7.0, Albumin 2.6L, Magnesium Level 2.2, Albumin/Globulin Ratio 0.59L CBC/BMP Laboratory Tests 04/16/19 05:38 Red Blood Count 4.01, Mean Corpuscular Volume 91.0, Mean Corpuscular Hemoglobin 29.9, Mean Corpuscular Hemoglobin Concent 32.9, Red Cell Distribution Width 14.4, Neutrophils (%) (Auto) 65.4, Lymphocytes (%) (Auto) 20.1 L, Monocytes (%) (Auto) 13.1 H, Eosinophils (%) (Auto) 0.9, Basophils (%) (Auto) 0.2, Neutrophils # (Auto) 5.7, Lymphocytes # (Auto) 1.8, Monocytes # (Auto) 1.1 H, Eosinophils # (Auto) 0.1, Basophils # (Auto) 0.0, Calcium Level 8.9, Aspartate Amino Transf (AST/SGOT) 20, Alanine Aminotransferase (ALT/SGPT) 11 L, Alkaline Phosphatase 43 L, Total Bilirubin 0.5, Total Protein 7.0, Albumin 2.6 L Attending Note Attending Note paracentesis done today with 4 L removed. Not able to sit for throacentesis. 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 MESSI BERMAN Apr 16, 2019 09:29 Mehrdad Ann MD Apr 16, 2019 16:08
[2019-04-16] MEDS: SPIRONOLACTONE 25 MG TAB PO SCH ×2 (09:57→17:14)
[2019-04-16 10:32] LABS: HEPATITIS B SURFACE ANTIGEN NEGATIVE (NEGATIVE)
[2019-04-16 11:00] LABS: HEPATITIS C VIRUS ABY INDEX 0.1 INDEX (<0.8)
[2019-04-16 15:27] LABS: SPEC. GRAVITY BODY FLUIDS 1.033 (NOT ESTABLISHED)
[2019-04-16 15:30] LABS: APPEARANCE, BODY FLUID CLOUDY (CLEAR); ASCITES FL COLOR YELLOW (COLORLESS); SOURCE, BODY FLUID ASCITES
[2019-04-16 15:48] LABS: SOURCE, BODY FLUID ALBUMIN ASCITES; SOURCE, BODY FLUID GLUCOSE ASCITES; SOURCE, BODY FLUID TOT PROTEIN ASCITES; TOTAL PROTEIN, BODY FLUID 5.6 G/DL (NOT ESTABLISHED)
[2019-04-16] MEDS ORDERED: LIDOCAINE 4% CREAM 5GM (LMX4) TOP PRN ×2 (16:15→22:00)
--- NOTE | 2019-04-16 17:15 | REP ---
Clinical: Left hip pain. Technique: Neutral and frog lateral views of the left hip. Findings: Early moderate arthritic degenerative changes include increased sclerosis to the acetabular roof, subchondral heterogeneity and subtle cystic changes to the underlying femoral head and mild joint space narrowing with marginal spurring. No acute fracture dislocation. Impression: Early moderate arthritic changes. Electronically Signed by David Abdalla MD 04/16/2019 05:06 P
--- NOTE | 2019-04-16 17:16 | REP ---
Clinical: Trauma. Fall. Technique: Single AP view of the pelvis. Findings: Age-related osteopenia and generalized degenerative changes are appreciated. No obvious acute fracture or dislocation noted. Impression: Age-related degenerative changes. No obvious acute fracture or dislocation. Electronically Signed by David Abdalla MD 04/16/2019 05:08 P
[2019-04-16] MEDS: NYSTATIN 100,000 UNITS/GM TOPICAL PWD 15 GM TOP SCH (21:43)
[2019-04-17 05:00] VITALS: BP 129/55
[2019-04-17] MEDS: FUROSEMIDE 20 MG/2 ML VIAL (J1940) IV SCH (05:45)
[2019-04-17] MEDS: SLF 3 ML SYR IV SCH ×3 (05:46→20:57)
[2019-04-17] MEDS: MORPHINE 4 MG/ML 1ML VIAL/SYRINGE (J2270) IV PRN (05:51)
[2019-04-17 06:20] LABS: ALBUMIN 2.4 GM/DL (3.2-5.2); ALT/SGPT 10 U/L (12-78); BILIRUBIN,TOTAL 0.6 MG/DL (0.2-1.0); BLOOD UREA NITROGEN 19 MG/DL (7-18); CALCIUM LEVEL 8.9 MG/DL (8.8-10.2); CARBON DIOXIDE LEVEL 35 MEQ/L (21-32); CHLORIDE LEVEL 96 MEQ/L (98-107); CREATININE FOR GFR 0.88 MG/DL (0.55-1.30); GLOMERULAR FILTRATION RATE > 60.0 (>32); GLUCOSE, FASTING 106 MG/DL (70-100); POTASSIUM SERUM 3.9 MEQ/L (3.5-5.1); SODIUM LEVEL 136 MEQ/L (136-145); TOTAL PROTEIN 6.7 GM/DL (6.4-8.2)
[2019-04-17 08:00] VITALS: BP 124/50
--- NOTE | 2019-04-17 08:24 | ECGEPIP ---
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
[2019-04-17 08:46] LABS: CA19-9 TUMOR MARKER,CARBOHYDRA 7.1 U/ML (<35.0)
[2019-04-17] MEDS: NYSTATIN 100,000 UNITS/GM TOPICAL PWD 15 GM TOP SCH ×2 (09:00→20:56)
--- NOTE | 2019-04-17 09:07 | IPNPDOC ---
Subjective Date Seen The patient was seen on 04/17/19. Subjective Chief Complaint/HPI Patient lying in bed as I entered the room. Daughter is at bedside. Patient is scheduled for a thoracentesis today Constitutional: Denies: Chills, Fever Pulmonary: Denies: Dyspnea Cardiovascular: Denies: Chest Pain, Palpitations, Orthopnea Gastrointestinal: Denies: Nausea, Vomiting, Abdominal Pain Musculoskeletal: Reports: Joint Pain Psych: Reports: Mood Normal Objective Physical Examination General Exam: Positive: Alert, Cooperative, No Acute Distress Eye Exam: Positive: PERRLA Neck Exam: Positive: Supple; Negative: JVD Chest Exam: Negative: Clear to auscultation, Rales, Rhonchi Heart Exam: Positive: Rate Normal Abdomen Exam: Positive: Normal bowel sounds, Soft; Negative: Tenderness Extremity Exam: Positive: Edema (trace) Psych Exam: Positive: Mood NL Assessment /Plan Problems (1) Ascites Status: Acute Response to Treatment: Stable Problem Text: 04/17/19: S/P paracentesis, removed aprox 4L, gram stain and culture pending. Change IV lasix to 40mg po daily 04/16/19: planned diagnostic para/thoracentesis today -3L since admission planned diagnostic para/thoracentesis 04/16 (could not be done over weekend) tumor markers for ascites corral 04/15 TTE/BNP (to ro concomitant CHF) 04/14 + fur 20 IV q6H and charlette 25 BID (favor 2 hyperaldo) 04/14 CT AP: Large volume of ascites. Nodular hepatic surface compatible with cirrhosis. No hepatic masses are identified. Hypodensity in the spleen, possibly a splenic hematoma. Left renal cyst. Cholecystectomy and appendectomy. Heterogeneous myometrium. The uterus is retroverted. Right adnexal cyst. No abdominal aortic aneurysm or dissection. No fractures are identified. (2) Pleural effusion Status: Acute Problem Text: 04/17/19: Thoracentesis today 04/16/19: planned diagnostic thoracentesis as per pleural effusion 04/14 CT chest: Large left pleural effusion with compression atelectasis of the left lower lobe. No thoracic aortic aneurysm or dissection. No mediastinal hematoma. No fractures are identified. Thyroid nodules. Upper abdominal ascites. Hepatic nodular surface compatible with cirrhosis. Coronary artery calcified atheroma. 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 Mid pole, complex, 2.3 cm. Mid pole, solid, 1.6 cm. The lower pole, calcified, 1.0 cm. favor FNA 16, 23 mm lesions (7) Physical deconditioning Status: Acute Response to Treatment: Stable Problem Text: + PT p teses Plan/VTE VTE Prophylaxis Ordered?: No VTE Exclusion Pharmacological: Other VS, I&O, 24H, Fishbone Vital Signs/I&O Vital Signs Date Time Temp Pulse Resp B/P (MAP) Pulse Ox O2 Delivery O2 Flow Rate FiO2 04/17/19 08:00 97.7 75 18 124/50 (74) 95 1.0 04/17/19 06:00 Nasal Cannula I&O- Last 24 Hours up to 6 AM0 04/17/19 05:59 Intake Total 1130 ml Output Total 3125 ml Balance -1995 ml Laboratory Data 24H LABS Laboratory Tests 2 04/16/19 14:25: Body Fluid Source ASCITES, Body Fluid Color YELLOW, Body Fluid Appearance CLOUDY, Body Fluid Specific [place] 1.033, Body Fluid WBC (Auto) 1683H, Body Fluid RBC (Auto) 5, Body Fluid Mononuclear Cells % Auto 82.4H, Fluid Polymorphonuclear Cell % Auto 17.6H, Body Fluid Glucose Source ASCITES, Body Fluid Glucose 97, Body Fluid Protein Source ASCITES, Body Fluid Total Protein 5.6, Body Fluid Albumin Source ASCITES, Body Fluid Albumin 2.4 04/17/19 05:28: Anion Gap 5L, Glomerular Filtration Rate > 60.0, Blood Urea Nitrogen 19H, Creatinine 0.88, Sodium Level 136, Potassium Level 3.9, Chloride Level 96L, Carbon Dioxide Level 35H, Calcium Level 8.9, Aspartate Amino Transf (AST/SGOT) 19, Alanine Aminotransferase (ALT/SGPT) 10L, Alkaline Phosphatase 41L, Total Bilirubin 0.6, Total Protein 6.7, Albumin 2.4L, Albumin/Globulin Ratio 0.56L CBC/BMP Laboratory Tests 04/17/19 05:28 Calcium Level 8.9, Aspartate Amino Transf (AST/SGOT) 19, Alanine Am inotransferase (ALT/SGPT) 10 L, Alkaline Phosphatase 41 L, Total Bilirubin 0.6, Total Protein 6.7, Albumin 2.4 L Microbiology Microbiology 04/16/19 Acid Fast Stain, Received Pending 04/16/19 Mycobacterial Culture, Received Pending 04/16/19 Fungal Smear, Received Pending 04/16/19 Fungal Culture, Received Pending 04/16/19 Gram Stain, Received Pending 04/16/19 Body Fluid Culture, Received Pending Attending Note Attending Note will cancel thoracentesis. not convinced we need it diagnostically and she seems to be having no symptoms. may improve effusion with gentle diuresis. if she is sufficiently hypoxic on RA to require oxygen support then thoracentesis would li coty reduce compression atelectasis and decrease intrapulmonary shunt and reduce O2 requirement MESSI BERMAN Apr 17, 2019 09:07 Mehrdad Ann MD Apr 17, 2019 13:50
[2019-04-17 09:39] LABS: CA 125 3004.4 U/ML (<30.2)
[2019-04-17] MEDS: SPIRONOLACTONE 25 MG TAB PO SCH ×2 (09:57→17:54)
--- NOTE | 2019-04-17 10:13 | REP ---
Ultrasound-guided paracentesis The procedure was performed under the direct supervision of Dr. Gooden. The risks and benefits of the procedure were explained to the patient and informed consent was obtained. The largest pocket of fluid was localized in the right flank using ultrasound guidance. The skin was prepped and draped in a sterile fashion. 1% lidocaine was used as a local anesthetic. An 8-Malay multi side-hole catheter was inserted using trocar technique. 3950 ml of lenka colored fluid was withdrawn with a sample sent to the lab for analysis. The patient tolerated the procedure well and there were no immediate complications. After the appropriate amount of monitored convalescence the patient was discharged from the department. Reviewed by RYLEE Mason 04/16/2019 05:23 P Electronically Signed by Stoney Gooden MD 04/17/2019 08:37 A
[2019-04-17] MEDS ORDERED: ACETAMINOPHEN TAB 650MG DOSE (2X325MG) PO PRN (11:45)
[2019-04-17 12:00] VITALS: BP 126/59
[2019-04-17] MEDS: oxyCODONE 5MG TAB PO PRN (15:44)
[2019-04-17 16:00] VITALS: BP 121/55
--- NOTE | 2019-04-17 17:21 | REP ---
Clinical: Elevated CA-125. Technique: Transabdominal pelvic ultrasound followed by transvaginal examination for better evaluation of the endometrium and adnexa. Findings: Examination is significantly limited. The bladder measures 10.1 x 4.1 x 8.9 cm with Jack catheter identified in satisfactory position. Heterogeneous anteverted uterus measures 8.7 x 4.5 x 6.8 cm with a large complex partially calcified degenerating fibroid measuring roughly 4.0 cm maximal diameter which obscures the endometrial complex. Ovaries are not well identified. There is a complex partially cystic/solid mass in the right adnexa measuring 6.7 x 3.7 x 5.7 cm. Moderate amount of free fluid noted in the pelvis. Impression: 1. Severely limited examination with suspected partially calcified degenerating fibroid limiting evaluation of the uterus. 2. 6.7 x 3.7 x 5.7 cm complex mass in the right adnexa along with moderate amount of free fluid in the pelvis. Electronically Signed by David Abdalla MD 04/17/2019 05:13 P
[2019-04-17 20:00] VITALS: BP 123/61
[2019-04-17 23:59] VITALS: BP 145/66
[2019-04-18 00:06] LABS: ANTI DOUBLE STRAND-DNA AB 2 IU/mL (0-9); ANTINUCLEAR ANTIBODIES DIRECT Positive (Negative); RNP ANTIBODIES <0.2 AI (0.0-0.9); SJOGREN'S ANTI SS-A >8.0 AI (0.0-0.9); SJOGREN'S ANTI SS-B <0.2 AI (0.0-0.9); SMITH ANTIBODIES <0.2 AI (0.0-0.9)
[2019-04-18 00:06] LABS: ANTI-MITOCHONDRIAL ANTIBODY <20.0 Units (0.0-20.0); THRYOGLOBULIN ANTIBODIES (ATA) < 1.0 IU/mL (0.0-0.9); THYROGLOBULIN QUANTITATIVE 14.7 ng/mL (1.5-38.5)
[2019-04-18] MEDS: oxyCODONE 5MG TAB PO PRN ×5 (00:17→20:31)
[2019-04-18 04:00] VITALS: BP 140/69
[2019-04-18] MEDS: SLF 3 ML SYR IV SCH ×3 (04:33→20:33)
[2019-04-18 06:08] LABS: ALBUMIN 2.3 GM/DL (3.2-5.2); ALT/SGPT 10 U/L (12-78); BILIRUBIN,TOTAL 0.9 MG/DL (0.2-1.0); BLOOD UREA NITROGEN 17 MG/DL (7-18); CALCIUM LEVEL 8.6 MG/DL (8.8-10.2); CARBON DIOXIDE LEVEL 36 MEQ/L (21-32); CHLORIDE LEVEL 96 MEQ/L (98-107); CREATININE FOR GFR 0.76 MG/DL (0.55-1.30); GLOMERULAR FILTRATION RATE > 60.0 (>32); GLUCOSE, FASTING 99 MG/DL (70-100); POTASSIUM SERUM 3.3 MEQ/L (3.5-5.1); SODIUM LEVEL 135 MEQ/L (136-145); TOTAL PROTEIN 6.6 GM/DL (6.4-8.2)
[2019-04-18 08:00] VITALS: BP 117/55
[2019-04-18] MEDS ORDERED: POTASSIUM CHLORIDE 10 MEQ SR TABLET PO ONE (08:00)
--- NOTE | 2019-04-18 08:29 | IPNPDOC ---
Subjective Date Seen The patient was seen on 04/18/19. Subjective Chief Complaint/HPI Patient resting comfortably in bed as I entered the room Constitutional: Denies: Chills, Fever Pulmonary: Denies: Cough, Pleuritic Chest Pain Cardiovascular: Denies: Chest Pain, Palpitations, Orthopnea, Edema Gastrointestinal: Denies: Nausea, Vomiting, Abdominal Pain Psych: Reports: Mood Normal Objective Physical Examination General Exam: Positive: Alert, Cooperative, No Acute Distress Eye Exam: Positive: PERRLA Neck Exam: Positive: Supple; Negative: JVD Chest Exam: Negative: Clear to auscultation, Rales, Rhonchi Heart Exam: Positive: Rate Normal Abdomen Exam: Positive: Normal bowel sounds, Soft; Negative: Tenderness Extremity Exam: Negative: Edema Psych Exam: Positive: Mood NL Assessment /Plan Problems (1) Ascites Status: Acute Response to Treatment: Stable Problem Text: 04/18/19: Weight remains stable. No obvious reaccumulation of ascites 04/17/19: S/P paracentesis, removed aprox 4L, gram stain and culture pending. Change IV lasix to 40mg po daily 04/16/19: planned diagnostic para/thoracentesis today -3L since admission planned diagnostic para/thoracentesis 04/16 (could not be done over weekend) tumor markers for ascites corral 04/15 TTE/BNP (to ro concomitant CHF) 04/14 + fur 20 IV q6H and charlette 25 BID (favor 2 hyperaldo) 04/14 CT AP: Large volume of ascites. Nodular hepatic surface compatible with cirrhosis. No hepatic masses are identified. Hypodensity in the spleen, possibly a splenic hematoma. Left renal cyst. Cholecystectomy and appendectomy. Heterogeneous myometrium. The uterus is retroverted. Right adnexal cyst. No abdominal aortic aneurysm or dissection. No fractures are identified. (2) Pleural effusion Status: Acute Problem Text: 04/18/19: Thoracentesis was canceled. No indication for thoracentesis at this time 04/17/19: Thoracentesis today 04/16/19: planned diagnostic thoracentesis as per pleural effusion 04/14 CT chest: Large left pleural effusion with compression atelectasis of the left lower lobe. No thoracic aortic aneurysm or dissection. No mediastinal hematoma. No fractures are identified. Thyroid nodules. Upper abdominal ascites. Hepatic nodular surface compatible with cirrhosis. Coronary artery calcified atheroma. (3) Elevated CA-125 Status: Acute Problem Text: 04/18/19: Complex mass noted on u/s. Patient wishes to have a SENIOR IT ENGINEER consult [facility] U/S Impression: 1. Severely limited examination with suspected partially calcified degenerating fibroid limiting evaluation of the uterus. 2. 6.7 x 3.7 x 5.7 cm complex mass in the right adnexa along with moderate amount of free fluid in the pelvis. 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 Mid pole, complex, 2.3 cm. Mid pole, solid, 1.6 cm. The lower pole, calcified, 1.0 cm. favor FNA 16, 23 mm lesions (7) Physical deconditioning Status: Acute Response to Treatment: Stable Problem Text: 04/18/19: She continues to work with PT + PT p teses Plan/VTE VTE Prophylaxis Ordered?: No VTE Exclusion Pharmacological: Other VS, I&O, 24H, Fishbone Vital Signs/I&O Vital Signs Date Time Temp Pulse Resp B/P (MAP) Pulse Ox O2 Delivery O2 Flow Rate FiO2 04/18/19 06:00 72 94 Nasal Cannula 1.0 04/18/19 05:54 16 04/18/19 04:00 99.2 140/69 (92) I&O- Last 24 Hours up to 6 AM 04/18/19 06:00 Intake Total 960 ml Output Total 1775 ml Balance -815 ml Laboratory Data 24H LABS Laboratory Tests 2 04/18/19 05:18: Anion Gap 3L, Glomerular Filtration Rate > 60.0, Blood Urea Nitrogen 17, Creatinine 0.76, Sodium Level 135L, Potassium Level 3.3L, Chloride Level 96L, Carbon Dioxide Level 36H, Calcium Level 8.6L, Aspartate Amino Transf (AST/SGOT) 22, Alanine Aminotransferase (ALT/SGPT) 10L, Alkaline Phosphatase 42L, Total Bilirubin 0.9, Total Protein 6.6, Albumin 2.3L, Albumin/Globulin Ratio 0.53L CBC/BMP Laboratory Tests 04/18/19 05:18 Calcium Level 8.6 L, Aspartate Amino Transf (AST/SGOT) 22, Alanine Aminotransferase (ALT/SGPT) 10 L, Alkaline Phosphatase 42 L, Total Bilirubin 0.9, Total Protein 6.6, Albumin 2.3 L Microbiology Microbiology 04/16/19 Acid Fast Stain, Received Pending 04/16/19 Mycobacterial Culture, Received Pending 04/16/19 Fungal Smear, Received Pending 04/16/19 Fungal Culture, Received Pending 04/16/19 Gram Stain - Final, Resulted 04/16/19 Body Fluid Culture, Resulted Pending MESSI BERMAN [facility] Apr 18, 2019 08:28
[2019-04-18] MEDS: SPIRONOLACTONE 25 MG TAB PO SCH ×2 (09:00→17:48)
[2019-04-18] MEDS: FUROSEMIDE 40 MG TAB PO SCH (09:18)
[2019-04-18] MEDS: NYSTATIN 100,000 UNITS/GM TOPICAL PWD 15 GM TOP SCH ×2 (09:21→20:34)
--- NOTE | 2019-04-18 11:16 | REP ---
Clinical: Pleural effusion. Code: AP and lateral views. Findings: Moderate/large left pleural effusion with left lower lobe atelectasis noted. Remainder of lung herrera are well-aerated and clear. Cardiac silhouette is normal. Skeletal structures stable. Impression: Moderate/large left pleural effusion and passive atelectasis. Electronically Signed by David Abdalla MD 04/18/2019 11:07 A
[2019-04-18 12:00] VITALS: BP 110/55
[2019-04-18 18:20] VITALS: BP 108/57
--- NOTE | 2019-04-18 19:45 | CR ---
DATE OF CONSULTATION: 04/18/2019 REASON FOR CONSULTATION: Elevated CA-125 with a right ovarian complex mass; cannot rule out cancer. HISTORY OF PRESENT ILLNESS: Mandy is an 84-year-old female who lives alone, para 8, who is admitted to the hospital after sustaining a fall. She was being worked up with abdominal ascites with a pleural effusion with questionable cirrhosis of the liver. Upon evaluation, she was found to have complex right ovarian mass as well as elevated CA-125 in the 3000 range. This consult was then called. I saw the patient and interviewed the patient with her daughter. The patient is a pleasant, 84-year-old female who, up until this visit to the hospital, reported to be in a healthy condition. She was found in bed in no acute distress. We did go through her history and review of her chart. Patient and daughter seem to be well aware of the finding of the ovarian mass, as well as the elevated tumor marker. We had an extensive discussion and possible risk of ovarian cancer and other cancerous process that could cause an elevated CA-125, as well as the fact that she has ascites, which may cause a false elevation in the CA-125. Her labs and ultrasound are also reviewed. On ultrasound, it shows a uterus that is heterogenous and measuring the 8.7 x 4.5 x 6.8. She does have a fibroid of 4 cm in size. The right ovary measures 6.7 by 3.7 x 5.7 with moderate free fluid in the pelvis. On physical exam, patient appeared to be in no acute distress. Her abdomen was soft, softly distended with evidence of ascites. No tenderness. EXTREMITIES: No clubbing, cyanosis. She does have multiple bruises in her thigh as well as a thumb and body from her fall. VAGINAL EXAM: On inspection, the vagina appeared to be within normal limits. No evidence of any bleeding. ASSESSMENT: 1. An 84-year-old female with a complex right ovarian mass, elevated CA-125 3004; cannot rule out an ovarian neoplasm. 2. Significant ascites as well as liver lesion; cannot rule out of cirrhosis of the liver. 3. Pleural effusion status post paracentesis, now improving PLAN: I had a detailed discussion with the patient and her daughter. Given the finding, the likelihood of an advance stage ovarian cancer cannot be ruled out; however, she was also made aware that ascites can cause a false elevation in the CA-125. We did discuss the possibility of having intervention radiology biopsy the ovarian mass to rule out a cancer. I did add cytology to her fluid for further evaluation. A CEA was also added to her labs. Please note that we do not have intervention radiology at this time. A consultation will be called in the morning by her primary care physician. If they are able to do the biopsy, and it does prove to be an ovarian cancer, I will facilitate a transfer to [place] with possible Dr. Robbins for further treatment. If this is truly a cancerous process, patient will probably need chemotherapy first prior to any surgical intervention. Patient will need medical clearance prior to intervention radiology performing the biopsy. The plan was discussed with the patient and her daughter in details. They both agree to the plan. At this point, we will wait for the consultation from intervention radiology for the biopsy of the of the right ovarian mass. In the meantime, will follow up the CEA, as well as the cytology on the fluid to rule out a possible primary colon cancer. TIME SPENT IN CONSULTATION: Approximately 1 hour and 15 minutes. ALRRY
[2019-04-18 20:00] VITALS: BP 109/43
[2019-04-18 22:00] VITALS: BP 109/43
[2019-04-18] MEDS ORDERED: POLYVINYL ALCOHOL OPHTH SOLN 15 ML(LIQUITEARS) OS PRN (23:45)
[2019-04-19] MEDS: SLF 3 ML SYR IV SCH ×3 (05:30→20:34)
[2019-04-19 06:00] VITALS: BP 104/59
[2019-04-19] MEDS: oxyCODONE 5MG TAB PO PRN ×3 (06:03→22:07)
[2019-04-19 08:21] LABS: ALBUMIN 2.4 GM/DL (3.2-5.2); ALT/SGPT 17 U/L (12-78); BILIRUBIN,TOTAL 0.8 MG/DL (0.2-1.0); BLOOD UREA NITROGEN 14 MG/DL (7-18); CALCIUM LEVEL 8.3 MG/DL (8.8-10.2); CARBON DIOXIDE LEVEL 31 MEQ/L (21-32); CHLORIDE LEVEL 96 MEQ/L (98-107); CREATININE FOR GFR 0.76 MG/DL (0.55-1.30); GLOMERULAR FILTRATION RATE > 60.0 (>32); GLUCOSE, FASTING 97 MG/DL (70-100); POTASSIUM SERUM 3.9 MEQ/L (3.5-5.1); SODIUM LEVEL 136 MEQ/L (136-145); TOTAL PROTEIN 6.8 GM/DL (6.4-8.2)
--- NOTE | 2019-04-19 10:13 | IPNPDOC ---
Subjective Date Seen The patient was seen on 04/19/19. Subjective Chief Complaint/HPI Patient comfortably lying in bed as I entered the room. She reports to be feeling well. She denies SOB or dyspnea. She is working with PT and reports her pain to be fairly well controlled on current regimen Constitutional: Denies: Chills, Fever Pulmonary: Denies: Dyspnea, Cough, Pleuritic Chest Pain Cardiovascular: Denies: Chest Pain, Palpitations, Orthopnea, Edema Gastrointestinal: Denies: Nausea, Vomiting, Abdominal Pain Psych: Reports: Mood Normal Objective Physical Examination General Exam: Positive: Alert, Cooperative, No Acute Distress Eye Exam: Positive: PERRLA Neck Exam: Positive: Supple; Negative: JVD Chest Exam: Positive: Clear to auscultation; Negative: Rales, Rhonchi Heart Exam: Positive: Rate Normal Abdomen Exam: Positive: Normal bowel sounds, Soft; Negative: Tenderness Extremity Exam: Negative: Edema Psych Exam: Positive: Mood NL Assessment /Plan Problems (1) Ascites Status: Acute Response to Treatment: Stable Problem Text: 04/19/19: Stable 04/18/19: Weight remains stable. No obvious reaccumulation of ascites 04/17/19: S/P paracentesis, removed aprox 4L, gram stain and culture pending. Change IV lasix to 40mg po daily 04/16/19: planned diagnostic para/thoracentesis today -3L since admission planned diagnostic para/thoracentesis 04/16 (could not be done over weekend) tumor markers for ascites corral 04/15 TTE/BNP (to ro concomitant CHF) 04/14 + fur 20 IV q6H and charlette 25 BID (favor 2 hyperaldo) 04/14 CT AP: Large volume of ascites. Nodular hepatic surface compatible with cirrhosis. No hepatic masses are identified. Hypodensity in the spleen, possibly a splenic hematoma. Left renal cyst. Cholecystectomy and appendectomy. Heterogeneous myometrium. The uterus is retroverted. Right adnexal cyst. No abdominal aortic aneurysm or dissection. No fractures are identified. (2) Pleural effusion Status: Acute Problem Text: 04/19/19: Patient asymptomatic. Does not require O2 Repeat Chest x-ray: Impression: Moderate/large left pleural effusion and passive atelectasis. 04/18/19: Thoracentesis was canceled. No indication for thoracentesis at this time 04/17/19: Thoracentesis today 04/16/19: planned diagnostic thoracentesis as per pleural effusion 04/14 CT chest: Large left pleural effusion with compression atelectasis of the left lower lobe. No thoracic aortic aneurysm or dissection. No mediastinal hematoma. No fractures are identified. Thyroid nodules. Upper abdominal ascites. Hepatic nodular surface compatible with cirrhosis. Coronary artery calcified atheroma. (3) Ovarian mass, right Status: Acute Problem Specific Plan: Consult Specialist Problem Text: 04/19/19: HEEL SEATER consulted yesterday, Dr. Luong. Recommendation was for biopsy with interventional radiology. Order for U/S guided abdominal wall biopsy placed (4) Elevated CA-125 Status: Acute Problem Text: 04/18/19: Complex mass noted on u/s. Patient wishes to have a HEEL SEATER consult [facility] U/S Impression: 1. Severely limited examination with suspected partially calcified degenerating fibroid limiting evaluation of the uterus. 2. 6.7 x 3.7 x 5.7 cm complex mass in the right adnexa along with moderate amount of free fluid in the pelvis. 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 Mid pole, complex, 2.3 cm. Mid pole, solid, 1.6 cm. The lower pole, calcified, 1.0 cm. favor FNA 16, 23 mm lesions (8) Physical deconditioning Status: Acute Response to Treatment: Stable Problem Text: 04/19/19: Continues to work with PT, plan for possible short term rehab 04/18/19: She continues to work with PT + PT p teses Plan/VTE VTE Prophylaxis Ordered?: Yes (TEDS and Sequentials ) VTE Exclusion Pharmacological: Other VS, I&O, 24H, Fishbone Vital Signs/I&O Vital Signs Date Time Temp Pulse Resp B/P (MAP) Pulse Ox O2 Delivery O2 Flow Rate FiO2 04/19/19 06:40 22 04/19/19 06:00 98.5 74 104/59 (74) 96 04/18/19 18:16 Room Air 04/18/19 12:00 1.0 I&O- Last 24 Hours up to 6 AM 04/19/19 06:00 Intake Total 930 ml Output Total 950 ml Balance -20 ml Laboratory Data 24H LABS Laboratory Tests 2 04/18/19 19:11: 04/19/19 07:29: CBC/BMP Microbiology Microbiology 04/16/19 Acid Fast Stain, Received Pending 04/16/19 Mycobacterial Culture, Received Pending 04/16/19 Fungal Smear, Received Pending 04/16/19 Fungal Culture, Received Pending 04/16/19 Gram Stain - Final, Complete 04/16/19 Body Fluid Culture - Final, Complete MESSI BERMAN [facility] Apr 19, 2019 08:22
[2019-04-19] MEDS: SPIRONOLACTONE 25 MG TAB PO SCH ×2 (11:29→17:37)
[2019-04-19] MEDS: NYSTATIN 100,000 UNITS/GM TOPICAL PWD 15 GM TOP SCH ×2 (11:30→20:34)
[2019-04-19] MEDS: FUROSEMIDE 40 MG TAB PO SCH (11:30)
[2019-04-19] MEDS ORDERED: LIDOCAINE 1% MDV 20ML VIAL As Ordered ONE (11:40)
[2019-04-19 14:00] VITALS: BP 150/61
--- NOTE | 2019-04-19 17:08 | REP ---
ULTRASOUND-GUIDED ABDOMINAL WALL MASS BIOPSY The procedure was performed under the direct supervision of Dr. Gooden. The abdominal wall/peritoneal implant superior to the umbilicus was localized using ultrasound guidance. The skin was prepped and draped in a sterile fashion. 1% lidocaine was used as a local anesthetic. Using ultrasound guidance a 19/20 gauge coaxial needle biopsy system was inserted and advanced into the mass. Six core biopsy samples were obtained. The paracentesis was also requested however, four-quadrant ultrasound showed no evidence of ascites fluid. There was some ascites fluid visualized around the mass which was biopsied. After the biopsy of the mass, the introducer needle was repositioned into the fluid and 200 ml of lenka colored fluid was withdrawn and sent to lab for analysis. The patient tolerated the procedure well and there no immediate complications. After the appropriate amount of monitored convalescence the patient was discharged from the department. Reviewed by RYLEE Mason 04/19/2019 04:39 P Electronically Signed by Stoney Gooden MD 04/19/2019 04:59 P
[2019-04-19 20:00] VITALS: BP 155/65
[2019-04-20] MEDS: SLF 3 ML SYR IV SCH ×2 (05:48→14:00)
[2019-04-20 06:00] VITALS: BP 138/80
[2019-04-20 06:14] LABS: ALBUMIN 2.1 GM/DL (3.2-5.2); ALT/SGPT 17 U/L (12-78); BILIRUBIN,TOTAL 0.5 MG/DL (0.2-1.0); BLOOD UREA NITROGEN 14 MG/DL (7-18); CALCIUM LEVEL 8.1 MG/DL (8.8-10.2); CARBON DIOXIDE LEVEL 30 MEQ/L (21-32); CHLORIDE LEVEL 99 MEQ/L (98-107); CREATININE FOR GFR 0.71 MG/DL (0.55-1.30); GLOMERULAR FILTRATION RATE > 60.0 (>32); GLUCOSE, FASTING 93 MG/DL (70-100); POTASSIUM SERUM 3.6 MEQ/L (3.5-5.1); SODIUM LEVEL 135 MEQ/L (136-145); TOTAL PROTEIN 6.6 GM/DL (6.4-8.2)
[2019-04-20] MEDS: FUROSEMIDE 40 MG TAB PO SCH (09:09)
[2019-04-20] MEDS: SPIRONOLACTONE 25 MG TAB PO SCH (09:09)
[2019-04-20] MEDS: NYSTATIN 100,000 UNITS/GM TOPICAL PWD 15 GM TOP SCH (09:09)
[2019-04-20 09:10] VITALS: BP 129/52
[2019-04-20] MEDS ORDERED: OXYCO5TA PO (11:49)
[2019-04-20] MEDS ORDERED: FURO40TA2 PO (11:49)
[2019-04-20] MEDS ORDERED: ALDA25TA2 PO (11:49)
--- NOTE | 2019-04-20 15:38 | DS.PDOC ---
Discharge Summary General Date of Admission Apr 14, 2019 at 09:41 Date of Discharge April 20, 2019 Primary Care Physician: MISTI MAZARIEGOS PA-C Attending Physician: Mehrdad Ann MD Specialist/Consultants Involve: A Specialist/Consultants Involve Interventional radiology Discharge Summary PROCEDURES PERFORMED DURING STAY: Paracentesis, Biopsy of ovarian mass DIAGNOSES: 1. Ascites 2. Left-sided pleural effusion 3. Ovarian Mass 4. Liver Cirrhosis 5. Thyroid nodule 6. Fall COMPLICATIONS/CHIEF COMPLAINT: Pleural Effusion On [place]. HISTORY OF PRESENT ILLNESS: an 84-year-old female who lives alone in a senior apartment with a [employer] bracelet and family close by, prior history of hypertension, which resolved without medications when she lost about 30 pounds, chronic back pain, osteoarthritis, prior history of bilateral shoulder surgery, obesity, body mass index (BMI) of 38.5, probable obstructive sleep apnea. Presents to the emergency room with a fall at home. The patient lost her footing at around 4:00 to 4:30 a.m. She got up around 3:30 to 4:00 a.m. to go to the bathroom, which had a tile file, she usually wears a brace on her left foot with a leather bottom and laces, which she kept intact. As she turned to sit down, she fell forward into the doorway landing on her left side, sustaining some bruises on the left face and eye as she fell on the sill. Both knees hurt the floor. She then pushed her [employer] necklace and help came. She has had increasing abdominal fullness, lower extremity edema for the past 1 month; despite losing 30 pounds when she first moved here, she has now gained them all back. She complains of early satiety, only able to eat about half of her soup and then feeling sick to her stomach. She complains of generalized fatigue and weakness and has been sleeping much more recently. She has noted increasing abdominal distention, weight gain. She denies any shortness of breath, chest pain, pressure, tightness, lightheadedness or dizziness. Denies any palpitations, fever, chills prior to the fall. Denies any nausea, vomiting, diarrhea, or constipation. She denies ever drinking much alcohol, drug use, or any family history of liver disease. In the ER, she was found to have a large left pleural effusion, a large amount of ascites on CT abdomen and pelvis. There is no fracture noted on the cervical spine, but a notable thyroid nodule with thyroid function test pending. 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 HOSPITAL COURSE: Current active issues: 1. Ascites: Patient diuresed initially with IV Lasix and spironolactone 25 mg BID. Paracentesis was performed on 04/16/19 with approx 4 L removed. Another 200 ml was removed at time of biopsy of ovarian mass. Cultures from ascites fluid was pending at time of discharge 2. Left-sided pleural effusion: Her SOB improved after paracentesis. Thoracentesis was initally considered, however, the procedure was ultimately not performed given her improvement 3. Ovarian Mass: Patient with an elevated Ca 125. Pelvic ultrasound demonstrated an ovarian mass. Dr. Luong was consulted and biopsy was performed as well as cytology of the peritoneal fluid. Core biopsy results were pending at time of discharge. Cytology demonstrated malignant cells. Referral to Dr. Marie was discussed. She will f/u with this as outpatient. 4. Liver Cirrhosis: Etiology unclear. She denies ETOH use. Hep C negative. Not felt to be autoimmune. Maybe related to nonalcoholic steatohepatitis 5. Thyroid nodule: Thyroid ultrasound with a left lobe single upper pole cyst measuring 0.2 cm. The thyroid parenchyma is homogeneous. TFT wnl. 6. Fall: Maxiofacial CT scan demonstrated Soft tissue swelling/superficial hematoma centered over the left cheek/left infraorbital region. No facial fracture. The paranasal sinuses are clear. Globes are symmetric. No retrobulbar hematoma. No radiopaque foreign body. CT head without contrast demonstrated no evidence of an acute intracranial injury. No intracranial hemorrhage. No e vidence of acute cortical infarct. No mass effect. No edema. Multiple extremity x-rays were negative for fracture. Pain was managed throughout her stay and she successfully worked with PT DISCHARGE MEDICATIONS: Please see below. ALLERGIES: Please see below. PHYSICAL EXAMINATION ON DISCHARGE: VITAL SIGNS: Please see below. GENERAL: AOx3, NAD HEENT: unremarkable NECK: soft, supple, no JVD CARDIOVASCULAR EXAMINATION:RRR RESPIRATORY EXAMINATION: Left side diminished. No rales, rhonchi, wheezing ABDOMINAL EXAMINATION: obese, soft, non-tender EXTREMITIES: no edema SKIN: warm, dry NEUROLOGICAL EXAMINATION: AOx3 PSYCHIATRIC EXAMINATION: normal mood LABORATORY DATA: Please see below. IMAGING: Multiple images Pelvic U/S 04/17/19 Impression: 1. Severely limited examination with suspected partially calcified degenerating fibroid limiting evaluation of the uterus. 2. 6.7 x 3.7 x 5.7 cm complex mass in the right adnexa along with moderate amount of free fluid in the pelvis. CT of Abdomen/Pelvis 04/14/19 Impression: Large volume of ascites. Nodular hepatic surface compatible with cirrhosis. No hepatic masses are identified. Hypodensity in the spleen, possibly a splenic hematoma. Left renal cyst. Cholecystectomy and appendectomy. Heterogeneous myometrium. The uterus is retroverted. Right adnexal cyst. No abdominal aortic aneurysm or dissection. No fractures are identified. ACTIVITY: As tolerated DISCHARGE PLAN: Discharge home with services DISCHARGE INSTRUCTIONS: 1. F/U with PCP in one week 2. Home health/PT 3. Hold home medications Losartan and HCTZ until f/u with PCP *New medications Lasix and Spironolactone, pressures stable upon discharge ITEMS TO FOLLOWUP ON ON OUTPATIENT: 1. Ovarian mass core biopsy's are pending. *Peritoneal fluid cytology demonstrated malignant cells 3. Referral to Dr. Marie will need to be arranged as outpatient DISCHARGE CONDITION: Stable Vital Signs/I&Os Vital Signs Date Time Temp Pulse Resp B/P (MAP) Pulse Ox O2 Delivery O2 Flow Rate FiO2 04/20/19 09:10 78 26 129/52 (77) 94 04/20/19 06:00 97.9 04/19/19 22:00 Room Air 04/19/19 16:54 1.0 I&O- Last 24 Hours up to 6 AM 04/20/19 06:00 Intake Total 610 ml Output Total 1300 ml Balance -690 ml Laboratory Data Labs 24H Laboratory Tests 2 04/20/19 05:29: Anion Gap 6L, Glomerular Filtration Rate > 60.0, Blood Urea Nitrogen 14, Creatinine 0.71, Sodium Level 135L, Potassium Level 3.6, Chloride Level 99, Carbon Dioxide Level 30, Calcium Level 8.1L, Aspartate Amino Transf (AST/SGOT) 31, Alanine Aminotransferase (ALT/SGPT) 17, Alkaline Phosphatase 44L, Total Bilirubin 0.5, Total Protein 6.6, Albumin 2.1L, Albumin/Globulin Ratio 0.47L CBC/BMP Laboratory Tests 04/20/19 05:29 Calcium Level 8.1 L, Aspartate Amino Transf (AST/SGOT) 31, Alanine Aminotransferase (ALT/SGPT) 17, Alkaline Phosphatase 44 L, Total Bilirubin 0.5, Total Protein 6.6, Albumin 2.1 L Microbiology Microbiology 04/16/19 Acid Fast Stain, Received Pending 04/16/19 Mycobacterial Culture, Received Pending 04/16/19 Fungal Smear, Received Pending 04/16/19 Fungal Culture, Received Pending 04/16/19 Gram Stain - Final, Complete 04/16/19 Body Fluid Culture - Final, Complete 04/20/19 Eye/Ear/Nose/Throat Culture, Received Pending Discharge Medications Scheduled Furosemide (Furosemide) 40 Mg Tablet, 40 MG PO DAILY Spironolactone (Aldactone) 25 Mg Tablet, 25 MG PO BID@, Scheduled PRN Oxycodone HCl (Oxycodone HCl) 5 Mg Tablet, 2.5 MG PO Q6HP PRN for PAIN Allergies Coded Allergies: acetaminophen (Verified Allergy, Mild, upset stomach, 04/14/19) aspirin (Verified Allergy, Mild, upset stomach , 04/14/19) ibuprofen (Verified Allergy, Mild, upset stomach , 04/14/19) Sulfa (Sulfonamide Antibiotics) (Verified Allergy, Unknown, 04/14/19) MESSI BERMAN Apr 20, 2019 12:07
== END 2019-04-20 14:14 | disposition home health service (06) | DRG 988 ==
LOC: M ED 05:09 → M ED INP 09:41 → M ICU 10:23 → M PCU 04-15 11:56 → M MSPAV 04-18 18:03
PROVIDERS: ADMIT General Practice; ATTEND Family Medicine
PROC: 0W9G3ZX Drainage of Peritoneal Cavity, Percutaneous Approach, Diagnostic (ICD-10-PCS; 2019-04-16)
PROC: 0WBF3ZX Excision of Abdominal Wall, Percutaneous Approach, Diagnostic (ICD-10-PCS; principal; 2019-04-19 11:30)
DX: C56.1 Malignant neoplasm of right ovary (principal); J91.0 Malignant pleural effusion; C79.89 Secondary malignant neoplasm of other specified sites; R18.0 Malignant ascites; K74.60 Unspecified cirrhosis of liver; E04.1 Nontoxic single thyroid nodule; I10 Essential (primary) hypertension; M19.90 Unspecified osteoarthritis, unspecified site; E66.01 Morbid (severe) obesity due to excess calories; Z68.38 Body mass index [BMI] 38.0-38.9, adult; G47.33 Obstructive sleep apnea (adult) (pediatric); Z88.6 Allergy status to analgesic agent; Z88.2 Allergy status to sulfonamides; Z66 Do not resuscitate; I27.81 Cor pulmonale (chronic)

== ENCOUNTER → 2019-04-26 | Outpatient (REF) | payer MEDICARE, MEDICAID ==
[~2019-04-26] MED LIST changes: +ALDA25TA2 PO; +B-12100021 PO; +FURO40TA2 PO; +GNP250TA9 PO; +ONDA4TAB5 PO; +OXYC-517 PO; +OXYCO5TA PO; +POTA10CA32 PO; +VITA500075 PO
[2019-04-26 18:05] LABS: ALBUMIN 2.9 GM/DL (3.2-5.2); BILIRUBIN,TOTAL 0.5 MG/DL (0.2-1.0); CALCIUM LEVEL 8.5 MG/DL (8.8-10.2); CREATININE FOR GFR 0.97 MG/DL (0.55-1.30); GLOMERULAR FILTRATION RATE 58.4 (>32); MAGNESIUM LEVEL 2.2 MG/DL (1.8-2.4); POTASSIUM SERUM 4.3 MEQ/L (3.5-5.1); TOTAL PROTEIN 7.5 GM/DL (6.4-8.2)
[2019-04-26 18:25] LABS: HEMATOCRIT 42.8 % (36.0-47.0); HEMOGLOBIN 13.9 g/dl (12.0-15.5); MEAN CORPUSCULAR HEMOGLOBIN 29.8 pg (27.0-33.0); MEAN CORPUSCULAR HGB CONC 32.5 g/dl (32.0-36.5); MEAN CORPUSCULAR VOLUME 91.8 fl (80.0-96.0); PLATELET COUNT, AUTOMATED 412 10^3/uL (150-450); RED BLOOD COUNT 4.66 10^6/uL (4.00-5.40); WHITE BLOOD COUNT 10.9 10^3/uL (4.0-10.0)
[2019-04-26 18:27] LABS: INR 1.18; PROTHROMBIN TIME 14.7 SECONDS (11.8-14.0)
== END ==
LOC: M SFHCPLAZ 14:38
PROVIDERS: ATTEND Family Medicine
DX: R18.0 Malignant ascites (principal); C56.1 Malignant neoplasm of right ovary

== ENCOUNTER → 2019-05-03 | Outpatient (CLI) | payer MEDICARE, MEDICAID ==
[~2019-05-03] MED LIST changes: -B-12100021 PO; -GNP250TA9 PO; -ONDA4TAB5 PO; -OXYC-517 PO; -POTA10CA32 PO; -VITA500075 PO
[2019-05-03 15:44] VITALS: BP 145/74
--- NOTE | 2019-05-04 07:51 | REP ---
Ultrasound-guided paracentesis The procedure was performed by RYLEE Bryant, under the direct supervision of Dr. Gooden. The risks and benefits of the procedure were explained to the patient and informed consent was obtained both verbally and written. Directly prior to the start of the procedure, a formal timeout was completed in the procedure room. Under ultrasound guidance, the largest pocket of fluid in the right flank was localized and skin was marked. The skin was then prepped and draped in a sterile fashion. 10 ml of 1% lidocaine was used as a local anesthetic. Using ultrasound guidance, an 8-Amharic multi side-hole catheter was inserted using trocar technique. 2,300 mL of red/brown colored fluid was withdrawn and discarded. The patient tolerated the procedure well and there were no immediate complications. After the appropriate monitored convalescence the patient was discharged from the department. Reviewed by RYLEE Ramirez 05/03/2019 05:49 P Electronically Signed by Stoney Gooden MD 05/04/2019 07:43 A
== END ==
LOC: M IRPRO 13:59
PROVIDERS: ATTEND Family Medicine
DX: R18.0 Malignant ascites (principal)